=== PATIENT | male | born 1985 | race Asian ===

== ENCOUNTER 2019-05-31 10:44 | Emergency (ER) | payer BC ==
[~2019-05-31] VITALS: Ht 175.3 cm; Wt 68.0 kg
[2019-05-31 10:52] VITALS: BP 158/104
--- NOTE | 2019-05-31 11:06 | NUR ---
PT SEEN AND EXAMINED BY .
[2019-05-31] MEDS ORDERED: LIDOCAINE /MPF 1% VIAL 5 ML VIAL ONE (11:11)
[2019-05-31] MEDS ORDERED: TDAP [DIPH/PERTUSSIS/TET] 0.5 ML VIAL IM ONE ×2 (11:18→11:30)
--- NOTE | 2019-05-31 11:26 | NUR ---
SUTURING DONE BY .
[2019-05-31] MEDS ORDERED: LIDOCAINE 1% INJ 50 ML MDV IJ ONE (11:30)
--- NOTE | 2019-05-31 11:40 | NUR ---
WOUND DRESSING DONE BY [employer].
--- NOTE | 2019-05-31 11:41 | NUR ---
Patient discharged to home in stable condition. Written and verbal after care instructions given. Patient verbalizes understanding of instruction.
== END 2019-05-31 11:42 | disposition home or self-care (01) ==
LOC: ER 10:56
DX: S61.210A Laceration without foreign body of right index finger without damage to nail, initial encounter (principal); W25.XXXA Contact with sharp glass, initial encounter; Y93.89 Activity, other specified; Y92.098 Other place in other non-institutional residence as the place of occurrence of the external cause; Y99.8 Other external cause status
CPT/HCPCS: 12002; 90471; 90715; 99283; A6403; J3490